=== PATIENT | female | born 1960 | race Caucasian/White ===

== ENCOUNTER 2019-05-14 15:10 | Emergency (ER) | payer OTHER ==
[~2019-05-14] VITALS: Ht 152.4 cm; Wt 63.6 kg
[2019-05-14 15:23] VITALS: BP 154/88
[2019-05-14] MEDS ORDERED: ALBU8HFA IH (15:35)
[2019-05-14] MEDS ORDERED: LOSA25TA71 PO (15:35)
== END 2019-05-14 17:23 | disposition home or self-care (01) ==
LOC: EMS 15:10
DX: N05.9 Unspecified nephritic syndrome with unspecified morphologic changes (principal); R04.0 Epistaxis; I10 Essential (primary) hypertension; J45.909 Unspecified asthma, uncomplicated; Z98.890 Other specified postprocedural states; Z79.899 Other long term (current) drug therapy